=== PATIENT | female | born 1985 | race Caucasian/White ===

== ENCOUNTER 2017-07-01 10:01 | Emergency (ER) | payer OTHER ==
[~2017-07-01] VITALS: Ht 162.6 cm; Wt 86.2 kg
[~2017-07-01 10:01] MED LIST: NOHOMEMEDICATIONS; STERAPRED DS10 MG PO
[2017-07-01] MEDS ORDERED: TRAZODONE HCL100 MG PO (10:11)
[2017-07-01] MEDS ORDERED: MINIPRESS2 MG PO (10:11)
[2017-07-01] MEDS ORDERED: CYMBALTA30 MG PO (10:12)
[2017-07-01] MEDS ORDERED: ABILIFY 2 MG2 M1 PO (10:12)
[2017-07-01] MEDS ORDERED: BUSPIRONE HCL10 MG PO (10:12)
[2017-07-01 10:50] LABS: ABSOLUTE EOSINOPHILS 0.3 thou/uL (0.0-0.7); ABSOLUTE LYMPHOCYTES 1.5 thou/uL (0.8-5.3); ABSOLUTE MONOCYTES 0.6 thou/uL (0.0-1.2); ABSOLUTE NEUTROPHILS 3.6 thou/uL (1.6-8.1); BASOPHILS 0.7 %; EOSINOPHILS 4.7 %; HEMATOCRIT 44.8 % (37.0-47.0); HEMOGLOBIN 14.9 gm/dL (12.0-15.0); LYMPHOCYTES 25.5 %; MCH 28.2 pg (26.0-34.0); MCHC 33.3 g/dL (28.0-37.0); MCV 84.7 fL (80.0-100.0); MONOCYTES 9.9 %; MPV 8.6 fl. (7.2-11.1); NUCLEATED RBCS 0 /100WBC; PLATELET COUNT* 207 thou/uL (150-400); POLYS 59.2 %; RBC 5.29 mil/uL (4.20-5.00); RDW-CV 12.9 % (10.5-14.5)
[2017-07-01 10:54] LABS: CALCIUM 8.8 mg/dL (8.5-10.1); POTASSIUM 3.9 mmol/L (3.5-5.1)
[2017-07-01 11:15] LABS: INFLUENZA A ANTIGEN None Detected (None Detect); INFLUENZA B ANTIGEN None Detected (None Detect)
[2017-07-01] MEDS ORDERED: PREDNISONE 10 M10 M1 PO (11:21)
[2017-07-01] MEDS ORDERED: BENZONATATE200 MG PO (11:21)
[2017-07-01] MEDS ORDERED: AMOXICILLIN 50500 M1 PO (11:21)
[2017-07-01] MEDS ORDERED: VENTOLIN HFA INH8 GM INH (11:21)
[2017-07-01 11:35] VITALS: BP 145/93
== END 2017-07-01 11:39 | disposition home or self-care (01) ==
LOC: M.ERS 10:01
PROVIDERS: Nurse Practitioner
DX: J40 Bronchitis, not specified as acute or chronic (principal); F17.210 Nicotine dependence, cigarettes, uncomplicated; Z90.49 Acquired absence of other specified parts of digestive tract; Z88.5 Allergy status to narcotic agent

== ENCOUNTER 2019-01-04 06:33 | Emergency (ER) | payer OTHER ==
[~2019-01-04] VITALS: Ht 160 cm; Wt 93.4 kg
[~2019-01-04 06:33] MED LIST changes: +ABILIFY 2 MG2 M1 PO; +AMOXICILLIN 50500 M1 PO; +BENZONATATE200 MG PO; +BUSPIRONE HCL10 MG PO; +CYMBALTA30 MG PO; +MINIPRESS2 MG PO; +PREDNISONE 10 M10 M1 PO; +TRAZODONE HCL100 MG PO; +VENTOLIN HFA INH8 GM INH
[2019-01-04] MEDS ORDERED: ASPIR 8181 M1 PO (06:42)
[2019-01-04] MEDS ORDERED: VENTOLIN HFA 1818 GM INH (08:22)
[2019-01-04] MEDS ORDERED: PREDNISONE 20 M20 M1 PO (08:22)
[2019-01-04] MEDS ORDERED: ZPAK PO (08:22)
[2019-01-04] MEDS ORDERED: TRAMADOL 50 MG50 MG PO (08:22)
[2019-01-04 08:51] VITALS: BP 170/89
== END 2019-01-04 08:54 | disposition home or self-care (01) ==
LOC: M.ERS 06:33
DX: J40 Bronchitis, not specified as acute or chronic (principal); Z88.5 Allergy status to narcotic agent; Z90.49 Acquired absence of other specified parts of digestive tract

== ENCOUNTER 2019-02-18 23:50 | Emergency (ER) | payer OTHER ==
[~2019-02-18] VITALS: Ht 160 cm; Wt 92.5 kg
[~2019-02-18 23:50] MED LIST changes: +ASPIR 8181 M1 PO; +PREDNISONE 20 M20 M1 PO; +TRAMADOL 50 MG50 MG PO; +VENTOLIN HFA 1818 GM INH; +ZPAK PO
[2019-02-19] MEDS ORDERED: NORCO 5-325 TA1 EAC1 PO (01:07)
[2019-02-19 01:41] VITALS: BP 151/95
== END 2019-02-19 01:44 | disposition home or self-care (01) ==
LOC: M.ERS 23:50
DX: S22.32XA Fracture of one rib, left side, initial encounter for closed fracture (principal); Z90.49 Acquired absence of other specified parts of digestive tract; Z88.5 Allergy status to narcotic agent; X58.XXXA Exposure to other specified factors, initial encounter; Y93.89 Activity, other specified; Y92.89 Other specified places as the place of occurrence of the external cause; Y99.8 Other external cause status

== ENCOUNTER 2019-03-09 17:11 | Inpatient (IN) | payer OTHER ==
[~2019-03-09] VITALS: Ht 160 cm; Wt 99.3 kg
[~2019-03-09 17:11] MED LIST changes: -ABILIFY 2 MG2 M1 PO; -ASPIR 8181 M1 PO; -BUSPIRONE HCL10 MG PO; -CYMBALTA30 MG PO; +NORCO 5-325 TA1 EAC1 PO
[2019-03-09 17:15] VITALS: BP 182/111
[2019-03-09 17:41] LABS: ABSOLUTE BASOPHILS 0.1 thou/uL (0.0-0.2); ABSOLUTE EOSINOPHILS 0.4 thou/uL (0.0-0.7); ABSOLUTE LYMPHOCYTES 2.4 thou/uL (0.8-5.3); ABSOLUTE MONOCYTES 0.6 thou/uL (0.0-1.2); ABSOLUTE NEUTROPHILS 4.4 thou/uL (1.6-8.1); BASOPHILS 0.9 %; HEMATOCRIT 45.2 % (37.0-47.0); HEMOGLOBIN 15.3 gm/dL (12.0-15.0); LYMPHOCYTES 30.9 %; MCH 28.2 pg (26.0-34.0); MCHC 33.9 g/dL (28.0-37.0); MCV 83.2 fL (80.0-100.0); MONOCYTES 7.9 %; MPV 7.7 fl. (7.2-11.1); NUCLEATED RBCS 0 /100WBC; PLATELET COUNT* 276 thou/uL (150-400); POLYS 55.3 %; RBC 5.44 mil/uL (4.20-5.00); RDW-CV 12.6 % (10.5-14.5); WBC 7.9 thou/uL (4.0-11.0)
[2019-03-09 17:46] LABS: PROTIME 10.3 Seconds (9.20-11.50)
[2019-03-09 17:48] LABS: CALCIUM 8.2 mg/dL (8.5-10.1); CREATININE 0.9 mg/dL (0.6-1.3); POTASSIUM 3.8 mmol/L (3.5-5.1)
[2019-03-09 17:59] LABS: ALBUMIN 3.5 g/dL (3.4-5.0); TOTAL BILIRUBIN 0.2 mg/dL (<0.1-1.0); TOTAL PROTEIN 6.9 g/dL (6.4-8.2)
[2019-03-09 18:12] LABS: URINE BILIRUBIN NEGATIVE (Negative); URINE BLOOD NEGATIVE (Negative); URINE CLARITY CLEAR; URINE COLOR YELLOW; URINE GLUCOSE-RANDOM NEGATIVE (Negative); URINE KETONES NEGATIVE (Negative); URINE LEUKOCYTES-REFLEX NEGATIVE (Negative); URINE NITRITE-REFLEX NEGATIVE (Negative); URINE PROTEIN NEGATIVE (Negative); URINE UROBILINOGEN 0.2 E.U./dl (0.2-1.0)
[2019-03-09 18:22] LABS: AMP/METHAMP Negative (Negative); BARBITURATES Negative (Negative); BENZODIAZEPINES Negative (Negative); COCAINE Negative (Negative); METHADONE Negative (Negative); OPIATES Negative (Negative); PCP Negative (Negative); THC POSITIVE (Negative)
[2019-03-09 20:37] VITALS: BP 139/93
[2019-03-09 20:50] VITALS: BP 137/96
[2019-03-09 23:47] VITALS: BP 146/103
[2019-03-10 04:00] VITALS: BP 147/98
[2019-03-10 08:00] VITALS: BP 142/96
[2019-03-10] MEDS ORDERED: CYMBALTA30 MG PO (08:42)
[2019-03-10] MEDS ORDERED: ASPIR 8181 M1 PO (08:43)
[2019-03-10] MEDS ORDERED: ABILIFY 2 MG2 M1 PO (08:43)
[2019-03-10] MEDS ORDERED: BUSPIRONE HCL10 MG PO (08:43)
[2019-03-10] MEDS ORDERED: PROAIR HFA8.5 GM INH (08:47)
--- NOTE | 2019-03-10 09:10 | NUR ---
RECEIVED REPORT FROM ER NURSE, LIDIA AT 1940. PATIENT CAME UP TO FLOOR AT 2039. ASSESSMENT COMPLETED CHARTED. PATIENT IS NSR ON MONITOR. PATIENT ORIENTED TO UNIT, ROOM, BED, CALL-LIGHT, AND HOSPITAL POLICY. FALL PRECAUTIONS IN PLACE. SEIZURE PREACUTIONS IN PLACE. DURING SHIFT PATIENT HAD HIGH BLOOD PRESSURE AND STATED THAT SHE HAD PAIN. PHYSICIAN NOTIFIED, NEW ORDERS RECEIVED AND MEDICATIONS GIVEN, SEE EMAR FOR DETAILS. HOURLY ROUNDING IN PLACE FOR PATIENT SAFETY. CLWR.
--- NOTE | 2019-03-10 09:19 | EKG ---
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
[2019-03-10 14:00] VITALS: BP 147/98
[2019-03-10] MEDS ORDERED: KEPPRA 500 MG500 MG PO (14:11)
[2019-03-10] MEDS ORDERED: HYDROCHLOROTHIA25 M2 PO (14:13)
[2019-03-10] MEDS ORDERED: PRINIVIL10 MG PO (14:14)
--- NOTE | 2019-03-10 15:56 | NUR ---
I have reviewed the documentation by JAZMIN CHE from 03/10/19 to 03/10/19 and I concur with it. SE DICKEY
--- NOTE | 2019-03-10 16:14 | NUR ---
ASSUMED PT CARE AT 0730. ASSESSMENT COMPLETED CHARTED. ABLE TO MAKE NEEDS KNOWN. UP WITH SBA. PT RESTING IN BED MOST OF THE DAY. WENT AND COMPLETED TESTING AND TELEPSYCH. DISCHARGE APPROVED AND DISCHARGE PACKET, MEDS, AND INFO WENT OVER WITH PT. IV AND HEART MONITOR REMOVED. C/O SLIGHT HEADACHE BUT DIDNT WANT PAIN MEDICATION. PT WALKED DOWN TO GF CAR WITH HELP OF STAFF AT AROUND 1515. ALL ITEMS TAKEN HOME BY DAUGHTER. NO COMMENTS, QUESTIONS OR CONCERNS NOTED.
[2019-03-10] MEDS ORDERED: FOLIC ACID1 MG PO (16:18)
--- NOTE | 2019-03-14 12:03 | CON ---
[address] [address] CONSULTATION Name: ODILIA LARES Room: [address] IN M.R.#: [id number] Admission: 03/09/19 Attend Phys: Kye Desai MD Discharge: 03/10/19 Date of : 85 Report #: [id number] THIS REPORT FOR: //name// CC: Kye Desai [facility] physician/PCP DATE OF SERVICE: 03/10/2019 HISTORY OF PRESENT ILLNESS: This is a 33-year-old female patient who was evaluated by me for seizure. This patient has a complicated history, which is difficult to evaluate because I do not have the prior records. She said she used to go to [facility] and they diagnosed her with conversion disorder and probably nonepileptiform events. However, this still left her on Keppra. It is not sure if they left her on Keppra because they thought some of the episode may be true seizure. She also had an extensive workup including MRI and that was unremarkable. She said she has not taken any medication for 2 years. Whenever she gets stressed out, she has a seizure; whenever she has some sickness, she has seizure and she had both of them. REVIEW OF SYSTEMS: Indicates she gives a history of TIA. She has a history of migraine, is not certain whether they are episodes of migraines. She got some Keppra and she indicated that she is feeling better. She had a cholecystectomy and she had a LEEP procedure. A 14-point review of system was carried out and she does have a history of conversion disorder. Past medical history is positive for what looks like a nonepileptiform event, but epileptiform event cannot be fully excluded. She has a history of migraine and TIA. She had complained of some numbness yesterday, but I do not think she had any numbness today. The rest of the 14-point review of system was noncontributory. PAST MEDICAL HISTORY: Positive for migraine, TIA. FAMILY HISTORY: Negative for any early age stroke. SOCIAL HISTORY: She does smoke, but does not drink alcohol on a regular basis. PHYSICAL EXAMINATION: NEUROLOGIC: Indicate that she is alert, responsive, able to follow simple and complex command. Her memory and fund of knowledge is at her baseline. Cranial nerve examination 2 through 12 indicates some visual problems in the baseline, but she does not think they are much different. She has a symmetrical strength, sensation, reflexes and tone in all 4 extremities. There is no meningeal sign. NECK: There is no carotid bruit. CARDIAC: Unremarkable. LUNGS: No respiratory difficulty was noticed. VITAL SIGNS: Blood pressure is 147/98, respirations 16, pulse is 94, [place] [address] CONSULTATION Name: ODILIA LARES Room: [address] IN M.R.#: [id number] Admission: 03/09/19 Attend Phys: Kye Desai MD Discharge: 03/10/19 Date of : 85 Report #: [id number] LABORATORY DATA: Sodium is 139. test is negative. Head CT does not show any definite abnormality. IMPRESSION: 1. 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 The people who have nonepileptiform events, they can also have epilepsy also. That makes it difficult in this patient. I discussed that aspect with the patient, we have limited resources to evaluate that further. I recommended that she go back to , see an epileptologist and see if further workup need to be done. She can also go to either [facility] or where those facilities available. 2. Question of transient ischemic attacks, which the patient had yesterday and had in the past. I will do an MRI to complete the workup. The patient really wants to be on Keppra. She can be on 500 mg b.i.d. of Keppra because she says that helped and people have left her on that. I discussed her options in that regard. She understands the potential side effect of Keppra, especially potential teratogenic. She has indicated that she will make sure that she is on some effective contraception and do not conceive. I also recommended taking her folic acid. I recommend doing a psychiatric consult in this patient. I discussed the complication in that regard and the fact that test does not necessarily exclude the and we can proceed with the testing and if she really wants, we can give her Keppra for the time being until she sees people at . This is what she wants to do and she understands all aspects of it. <ELECTRONICALLY SIGNED> By: Rafi Alvarez MD 03/14/19 1203 1017 1049Rafi Alvarez MD /nt
--- NOTE | 2019-03-14 12:03 | EEG ---
[address] [address] EEG STUDY REPORT Name: ODILIA LARES Room: [address] IN .R#: [id number] Admission: 03/09/19 Attend Phys: Kye Desai MD Discharge: 03/10/19 Date of : 85 Report #: [id number] THIS REPORT FOR: //name// CC: Kye Desai [facility] physician/PCP DATE OF SERVICE: 03/09/2019 This patient is being evaluated for the possibility of seizure. EEG was done by placing the electrode by standard 10-20 system of electrode placement. Both referential and sequential montages were used for recording. Background activity in this patient's EEG is about 8 Hz and 30 microvolt. The patient went to sleep that is associated with bilateral slowing and vertex sharp waves. The patient had 2 of her spells during this EEG. During those spells, the patient's EEG becomes intermixed with a lot of muscle artifact, but there is no post-episode slowing. IMPRESSION: This patient's EEG does not demonstrate any clear-cut epileptiform activity. The patient had 2 of her spells during those episodes which appeared to be nonepileptiform event. Thank you very much for this referral. <ELECTRONICALLY SIGNED> By: Rafi Alvarez MD 03/14/19 1203 0818 0822Rafi Alvarez MD /haleigh
== END 2019-03-10 16:23 | disposition home or self-care (01) | DRG 880 ==
LOC: M.ERS 17:11 → M.2W 18:13 → M.TBA-ER 18:13 → M.2W 20:27
PROVIDERS: Emergency Medicine; ADMIT Internal Medicine
DX: F44.5 Conversion disorder with seizures or convulsions (principal); G90.50 Complex regional pain syndrome I, unspecified; J45.909 Unspecified asthma, uncomplicated; F41.9 Anxiety disorder, unspecified; I10 Essential (primary) hypertension; F17.210 Nicotine dependence, cigarettes, uncomplicated; F12.90 Cannabis use, unspecified, uncomplicated; G43.909 Migraine, unspecified, not intractable, without status migrainosus; Z86.73 Personal history of transient ischemic attack (TIA), and cerebral infarction without residual deficits; Z79.899 Other long term (current) drug therapy; Z79.82 Long term (current) use of aspirin; Z88.5 Allergy status to narcotic agent; Z90.49 Acquired absence of other specified parts of digestive tract

== ENCOUNTER 2019-03-18 14:42 | Emergency (ER) | payer OTHER ==
[~2019-03-18] VITALS: Ht 160 cm; Wt 94.3 kg
--- NOTE | ~2019-03-18 | EKG ---
[place] [address] ELECTROCARDIOGRAM REPORT Name: ODILIA LARES Giacomo Room: 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
[~2019-03-18 14:42] MED LIST changes: +ABILIFY 2 MG2 M1 PO; +ASPIR 8181 M1 PO; +BUSPIRONE HCL10 MG PO; +CYMBALTA30 MG PO; +FOLIC ACID1 MG PO; +HYDROCHLOROTHIA25 M2 PO; +KEPPRA 500 MG500 MG PO; +PRINIVIL10 MG PO; +PROAIR HFA8.5 GM INH
[2019-03-18 15:15] LABS: ABSOLUTE EOSINOPHILS 0.4 thou/uL (0.0-0.7); ABSOLUTE LYMPHOCYTES 2.2 thou/uL (0.8-5.3); ABSOLUTE NEUTROPHILS 10.8 thou/uL (1.6-8.1); BASOPHILS 0.3 %; EOSINOPHILS 2.5 %; HEMATOCRIT 47.8 % (37.0-47.0); HEMOGLOBIN 16.3 gm/dL (12.0-15.0); LYMPHOCYTES 15.2 %; MCH 28.2 pg (26.0-34.0); MCHC 34.1 g/dL (28.0-37.0); MCV 82.6 fL (80.0-100.0); MONOCYTES 7.2 %; MPV 8.9 fl. (7.2-11.1); NUCLEATED RBCS 0 /100WBC; PLATELET COUNT* 282 thou/uL (150-400); POLYS 74.8 %; RBC 5.79 mil/uL (4.20-5.00); RDW-CV 12.9 % (10.5-14.5); WBC 14.5 thou/uL (4.0-11.0)
[2019-03-18 15:31] LABS: CALCIUM 8.7 mg/dL (8.5-10.1); CREATININE 0.9 mg/dL (0.6-1.3); POTASSIUM 4.6 mmol/L (3.5-5.1)
[2019-03-18 15:35] LABS: ALBUMIN 3.9 g/dL (3.4-5.0); TOTAL BILIRUBIN 0.4 mg/dL (<0.1-1.0); TOTAL PROTEIN 8.1 g/dL (6.4-8.2)
[2019-03-18] MEDS ORDERED: VENTOLIN HFA 1818 GM INH (16:37)
[2019-03-18 17:27] VITALS: BP 121/77
== END 2019-03-18 17:29 | disposition home or self-care (01) ==
LOC: M.ERS 14:42
PROVIDERS: Emergency Medicine Emergency Medical Services
DX: G40.89 Other seizures (principal); I10 Essential (primary) hypertension; F17.210 Nicotine dependence, cigarettes, uncomplicated; Z88.5 Allergy status to narcotic agent; Z90.49 Acquired absence of other specified parts of digestive tract; Z86.73 Personal history of transient ischemic attack (TIA), and cerebral infarction without residual deficits

== ENCOUNTER 2019-05-06 05:24 | Emergency (ER) | payer OTHER ==
[~2019-05-06] VITALS: Ht 160 cm; Wt 95.7 kg
[2019-05-06] MEDS ORDERED: TOPAMAX100 MG PO (05:35)
[2019-05-06] MEDS ORDERED: NEBULIZER MISCELL (07:10)
[2019-05-06] MEDS ORDERED: ALBUTEROL2.5 MG/31 INH (07:10)
[2019-05-06] MEDS ORDERED: HYDROCODON-ACE1 EAC8 PO (07:11)
[2019-05-06] MEDS ORDERED: PREDNISONE50 MG PO (07:11)
[2019-05-06 07:19] VITALS: BP 96/53
== END 2019-05-06 07:20 | disposition home or self-care (01) ==
LOC: M.ERS 05:24
DX: J45.901 Unspecified asthma with (acute) exacerbation (principal); I10 Essential (primary) hypertension; F17.210 Nicotine dependence, cigarettes, uncomplicated; Z90.49 Acquired absence of other specified parts of digestive tract; Z86.73 Personal history of transient ischemic attack (TIA), and cerebral infarction without residual deficits; Z88.6 Allergy status to analgesic agent

== ENCOUNTER 2019-05-07 17:10 | Inpatient (IN) | payer OTHER ==
[~2019-05-07] VITALS: Ht 160 cm; Wt 96.8 kg
[~2019-05-07 17:10] MED LIST changes: +ALBUTEROL2.5 MG/31 INH; +HYDROCODON-ACE1 EAC8 PO; +NEBULIZER MISCELL; +PREDNISONE50 MG PO; +TOPAMAX100 MG PO
[2019-05-07 17:19] VITALS: BP 140/89
--- NOTE | 2019-05-07 20:18 | NUR ---
COVID19 UNDERGOING TESTING
[2019-05-07 20:22] LABS: ABSOLUTE BASOPHILS 0.1 thou/uL (0.0-0.2); ABSOLUTE EOSINOPHILS 0.3 thou/uL (0.0-0.7); ABSOLUTE LYMPHOCYTES 2.5 thou/uL (0.8-5.3); ABSOLUTE MONOCYTES 0.7 thou/uL (0.0-1.2); ABSOLUTE NEUTROPHILS 6.4 thou/uL (1.6-8.1); BASOPHILS 0.6 %; HEMATOCRIT 44.3 % (37.0-47.0); HEMOGLOBIN 15.1 gm/dL (12.0-15.0); LYMPHOCYTES 25.1 %; MCH 28.1 pg (26.0-34.0); MCV 82.8 fL (80.0-100.0); MPV 8.9 fl. (7.2-11.1); NUCLEATED RBCS 0 /100WBC; PLATELET COUNT* 260 thou/uL (150-400); POLYS 64.3 %; RBC 5.36 mil/uL (4.20-5.00); RDW-CV 12.1 % (10.5-14.5)
[2019-05-07 20:31] LABS: CALCIUM 8.7 mg/dL (8.5-10.1); CREATININE 0.8 mg/dL (0.6-1.3); POTASSIUM 3.4 mmol/L (3.5-5.1)
[2019-05-07 20:36] LABS: ALBUMIN 3.9 g/dL (3.4-5.0); TOTAL BILIRUBIN 0.3 mg/dL (<0.1-1.0); TOTAL PROTEIN 7.8 g/dL (6.4-8.2)
[2019-05-07 21:25] VITALS: BP 124/70
[2019-05-07 23:45] VITALS: BP 125/83
[2019-05-08 07:30] VITALS: BP 136/87
--- NOTE | 2019-05-08 07:38 | NUR ---
REPORT RECIEVED FROM ER. PT ORIENTED TO ROOM, CALL LIGHT SHOWN, FALL AGREEMENT WENT OVER, PT STATED UNDERSTANDING. ADMISSION DOCUMENTED. IV PATENT, FLUIDS INFUSING. FALL PRECAUTIONS IN PLACE. WILL CONTINUE WITH PLAN OF CARE.
[2019-05-08] MEDS ORDERED: PLAQUENIL200 MG PO (12:14)
[2019-05-08 12:15] VITALS: BP 136/87
[2019-05-08] MEDS ORDERED: ZPAK PO (12:15)
== END 2019-05-08 13:00 | disposition home or self-care (01) | DRG 202 ==
LOC: M.ERS 17:10 → M.TBA-ER 19:59 → M.ERS 21:25 → M.2W 21:34
PROVIDERS: Physician Assistant; ADMIT Internal Medicine
DX: J45.901 Unspecified asthma with (acute) exacerbation (principal); R65.10 Systemic inflammatory response syndrome (SIRS) of non-infectious origin without acute organ dysfunction; I10 Essential (primary) hypertension; F17.210 Nicotine dependence, cigarettes, uncomplicated; Z20.828 Contact with and (suspected) exposure to other viral communicable diseases; Z90.49 Acquired absence of other specified parts of digestive tract; Z86.73 Personal history of transient ischemic attack (TIA), and cerebral infarction without residual deficits; Z79.899 Other long term (current) drug therapy; Z79.51 Long term (current) use of inhaled steroids; Z88.6 Allergy status to analgesic agent; Z83.3 Family history of diabetes mellitus

== ENCOUNTER 2019-07-28 06:32 | Emergency (ER) | payer OTHER ==
[~2019-07-28] VITALS: Ht 160 cm; Wt 95.3 kg
[~2019-07-28 06:32] MED LIST changes: +PLAQUENIL200 MG PO
[2019-07-28 07:31] LABS: ABSOLUTE EOSINOPHILS 0.3 thou/uL (0.0-0.7); ABSOLUTE LYMPHOCYTES 2.1 thou/uL (0.8-5.3); ABSOLUTE MONOCYTES 0.6 thou/uL (0.0-1.2); BASOPHILS 0.4 %; HEMATOCRIT 43.7 % (37.0-47.0); HEMOGLOBIN 14.8 gm/dL (12.0-15.0); LYMPHOCYTES 23.2 %; MCH 28.3 pg (26.0-34.0); MCHC 33.9 g/dL (28.0-37.0); MCV 83.5 fL (80.0-100.0); MONOCYTES 6.8 %; MPV 9.3 fl. (7.2-11.1); NUCLEATED RBCS 0 /100WBC; PLATELET COUNT* 225 thou/uL (150-400); POLYS 66.6 %; RBC 5.24 mil/uL (4.20-5.00); RDW-CV 12.4 % (10.5-14.5)
[2019-07-28 07:41] LABS: CALCIUM 8.1 mg/dL (8.5-10.1); CREATININE 1.1 mg/dL (0.6-1.3); POTASSIUM 3.5 mmol/L (3.5-5.1)
[2019-07-28 07:45] LABS: ALBUMIN 3.8 g/dL (3.4-5.0); TOTAL BILIRUBIN 0.2 mg/dL (<0.1-1.0); TOTAL PROTEIN 7.5 g/dL (6.4-8.2)
[2019-07-28] MEDS ORDERED: VENTOLIN HFA 1818 GM INH (08:01)
[2019-07-28] MEDS ORDERED: PREDNISONE50 MG PO (08:01)
[2019-07-28 08:13] VITALS: BP 149/88
== END 2019-07-28 08:14 | disposition home or self-care (01) ==
LOC: M.ERS 06:32
PROVIDERS: Personal Emergency Response Attendant
DX: J45.901 Unspecified asthma with (acute) exacerbation (principal); F17.210 Nicotine dependence, cigarettes, uncomplicated; F12.10 Cannabis abuse, uncomplicated; I10 Essential (primary) hypertension; R07.89 Other chest pain; Z88.5 Allergy status to narcotic agent; Z79.899 Other long term (current) drug therapy; Z90.49 Acquired absence of other specified parts of digestive tract

== ENCOUNTER 2019-10-18 15:52 | Emergency (ER) | payer OTHER ==
[~2019-10-18] VITALS: Ht 160 cm; Wt 92.1 kg
[2019-10-18 16:20] LABS: ABSOLUTE BASOPHILS 0.1 thou/uL (0.0-0.2); ABSOLUTE EOSINOPHILS 0.6 thou/uL (0.0-0.7); ABSOLUTE LYMPHOCYTES 2.3 thou/uL (0.8-5.3); ABSOLUTE MONOCYTES 0.8 thou/uL (0.0-1.2); ABSOLUTE NEUTROPHILS 7.2 thou/uL (1.6-8.1); BASOPHILS 0.7 %; EOSINOPHILS 5.4 %; HEMATOCRIT 45.3 % (37.0-47.0); HEMOGLOBIN 15.6 gm/dL (12.0-15.0); LYMPHOCYTES 20.7 %; MCH 28.8 pg (26.0-34.0); MCHC 34.4 g/dL (28.0-37.0); MCV 83.6 fL (80.0-100.0); MONOCYTES 7.1 %; NUCLEATED RBCS 0 /100WBC; PLATELET COUNT* 250 thou/uL (150-400); POLYS 66.1 %; RBC 5.42 mil/uL (4.20-5.00); RDW-CV 13.4 % (10.5-14.5); WBC 10.9 thou/uL (4.0-11.0)
[2019-10-18 16:28] LABS: POTASSIUM 4.2 mmol/L (3.5-5.1)
[2019-10-18 16:33] LABS: ALBUMIN 3.9 g/dL (3.4-5.0); TOTAL BILIRUBIN 0.3 mg/dL (<0.1-1.0); TOTAL PROTEIN 7.2 g/dL (6.4-8.2)
[2019-10-18 17:16] VITALS: BP 114/74
--- NOTE | 2019-10-19 15:17 | EKG ---
[place] [address] ELECTROCARDIOGRAM REPORT Name: ODILIA LARES Room: 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 : 1985 Requested By: Oswaldo Madrigal Order Number: [id number] MD: Eric Quiroz Measurements Intervals [place] Rate: 68 P: 68 [place]: 163 QRS: 64 QRSD: 88 T: 37 QT: 371 QTc: 395 Interpretive Statements Sinus rhythm ST elev, probable normal early repol pattern Baseline wander in lead(s) II,III,aVF Compared to ECG 03/18/2019 14:53:57 Sinus tachycardia no longer present Electronically Signed On 10-19-2019 15:17:35 CDT by Eric Quiroz [email or web address] <ELECTRONICALLY SIGNED> By: Eric Quiroz MD, [facility] 10/19/19 1517 1658 1658 Eric Quiroz MD, [facility] /EPI
== END 2019-10-18 17:17 | disposition home or self-care (01) ==
LOC: M.ERS 15:52
PROVIDERS: Family Medicine
DX: R56.9 Unspecified convulsions (principal); I10 Essential (primary) hypertension; F17.210 Nicotine dependence, cigarettes, uncomplicated; Z90.49 Acquired absence of other specified parts of digestive tract; Z86.73 Personal history of transient ischemic attack (TIA), and cerebral infarction without residual deficits; Z88.6 Allergy status to analgesic agent

== ENCOUNTER 2019-11-03 15:51 | Emergency (ER) | payer OTHER ==
[~2019-11-03] VITALS: Ht 160 cm; Wt 92.1 kg
[2019-11-03] MEDS ORDERED: NORCO 5-325 TA1 EAC2 PO ×2 (17:37→17:43)
[2019-11-03 18:06] VITALS: BP 136/94
== END 2019-11-03 18:06 | disposition home or self-care (01) ==
LOC: M.ERS 15:51
DX: M79.672 Pain in left foot (principal); I10 Essential (primary) hypertension; F17.210 Nicotine dependence, cigarettes, uncomplicated; Z79.899 Other long term (current) drug therapy; Z88.6 Allergy status to analgesic agent; W22.8XXA Striking against or struck by other objects, initial encounter; Y93.89 Activity, other specified; Y92.89 Other specified places as the place of occurrence of the external cause; Y99.8 Other external cause status

== ENCOUNTER 2020-01-02 01:15 | Emergency (ER) | payer OTHER ==
[~2020-01-02] VITALS: Ht 160 cm; Wt 90.3 kg
[~2020-01-02 01:15] MED LIST changes: +NORCO 5-325 TA1 EAC2 PO
[2020-01-02 01:49] LABS: ABSOLUTE EOSINOPHILS 0.5 thou/uL (0.0-0.7); ABSOLUTE MONOCYTES 0.7 thou/uL (0.0-1.2); ABSOLUTE NEUTROPHILS 5.3 thou/uL (1.6-8.1); BASOPHILS 0.4 %; EOSINOPHILS 5.4 %; HEMATOCRIT 46.5 % (37.0-47.0); HEMOGLOBIN 15.2 gm/dL (12.0-15.0); LYMPHOCYTES 31.3 %; MCH 27.5 pg (26.0-34.0); MCHC 32.8 g/dL (28.0-37.0); MCV 84.1 fL (80.0-100.0); MPV 8.5 fl. (7.2-11.1); NUCLEATED RBCS 0 /100WBC; PLATELET COUNT* 248 thou/uL (150-400); POLYS 55.9 %; RBC 5.52 mil/uL (4.20-5.00); RDW-CV 12.9 % (10.5-14.5); WBC 9.4 thou/uL (4.0-11.0)
[2020-01-02 01:55] LABS: URINE BILIRUBIN NEGATIVE (Negative); URINE BLOOD 2+ (Negative); URINE CLARITY CLEAR; URINE COLOR YELLOW; URINE GLUCOSE-RANDOM NEGATIVE (Negative); URINE KETONES NEGATIVE (Negative); URINE LEUKOCYTES-REFLEX NEGATIVE (Negative); URINE NITRITE-REFLEX NEGATIVE (Negative); URINE PROTEIN NEGATIVE (Negative); URINE SPECIFIC GRAVITY <= 1.005 (1.005-1.030); URINE UROBILINOGEN 0.2 E.U./dl (0.2-1.0)
[2020-01-02 01:58] LABS: CALCIUM 8.3 mg/dL (8.5-10.1); CREATININE 0.8 mg/dL (0.6-1.3); POTASSIUM 3.6 mmol/L (3.5-5.1)
[2020-01-02 02:02] LABS: APTT 26.2 Seconds (25.0-31.3); PROTIME 10.3 Seconds (9.20-11.50)
[2020-01-02 02:03] LABS: ALBUMIN 3.9 g/dL (3.4-5.0); TOTAL BILIRUBIN 0.2 mg/dL (<0.1-1.0); TOTAL PROTEIN 7.4 g/dL (6.4-8.2)
[2020-01-02] MEDS ORDERED: PRINIVIL10 MG PO (02:10)
[2020-01-02] MEDS ORDERED: KEPPRA XR500 MG PO (02:10)
[2020-01-02] MEDS ORDERED: TOPAMAX50 MG PO (02:10)
[2020-01-02 02:23] LABS: CASTS None Seen /LPF (None Seen); CRYSTALS None Seen /LPF (None Seen); MUCUS 4-6 Moderate strn/LPF (None Seen); SQUAMOUS 4-10 Moderate /LPF (0-3); URINE RBC 3-10 Few /HPF (0-2); URINE WBC-REFLEX None Seen /HPF (0-5)
[2020-01-02 02:24] LABS: AMP/METHAMP Negative (Negative); BARBITURATES POSITIVE (Negative); BENZODIAZEPINES Negative (Negative); COCAINE Negative (Negative); METHADONE Negative (Negative); OPIATES Negative (Negative); PCP Negative (Negative); THC POSITIVE (Negative)
[2020-01-02 03:10] VITALS: BP 146/89
--- NOTE | 2020-01-02 16:12 | EKG ---
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
== END 2020-01-02 03:15 | disposition home or self-care (01) ==
LOC: M.ERS 01:15
PROVIDERS: Personal Emergency Response Attendant
DX: G40.909 Epilepsy, unspecified, not intractable, without status epilepticus (principal); I10 Essential (primary) hypertension; Z20.828 Contact with and (suspected) exposure to other viral communicable diseases; F17.210 Nicotine dependence, cigarettes, uncomplicated; Z91.14 Patient's other noncompliance with medication regimen; Z88.0 Allergy status to penicillin; Z90.49 Acquired absence of other specified parts of digestive tract; Z86.73 Personal history of transient ischemic attack (TIA), and cerebral infarction without residual deficits